=== PATIENT | male | born 1975 | race Hispanic/Latino ===

== ENCOUNTER → 2018-03-17 | Day surgery (SDC) | payer OTHER ==
[2018-03-10 10:59] LABS: BASOPHILS # (AUTO) 0.1 (0.0-0.1); EOSINOPHILS # (AUTO) 0.2 (0.0-0.4); EOSINOPHILS % 2.7 % (0.0-6.0); HEMATOCRIT 46.2 % (38.2-49.6); HEMOGLOBIN 16.5 g/dL (14.0-18.0); LYMPHOCYTES # (AUTO) 2.2 (1.0-3.2); LYMPHOCYTES % 31.2 % (18.0-39.1); MEAN CORPUSCULAR HEMOGLOBIN 31.1 pg (28-32); MEAN CORPUSCULAR HGB CONC 35.7 g/dL (31-35); MEAN CORPUSCULAR VOLUME 87.2 fL (81-99); MONOCYTES # (AUTO) 0.8 (0.2-0.8); MONOCYTES % 11.3 % (4.4-11.3); NEUTROPHILS # (AUTO) 3.7 (2.1-6.9); NEUTROPHILS % 53.4 % (38.7-80.0); PLATELET COUNT 209 x10e3/uL (140-360); RED CELL DISTRIBUTION WIDTH 12.5 % (11.7-14.4)
[2018-03-10 11:17] LABS: ANION GAP 13.8 mmol/L (8-16); BLOOD UREA NITROGEN 14 mg/dL (7-26); BUN/CREATININE RATIO 12 (6-25); CALCIUM 9.9 mg/dL (8.4-10.2); CARBON DIOXIDE 29 mmol/L (22-29); CHLORIDE 102 mmol/L (98-107); CREATININE, SERUM 1.15 mg/dL (0.72-1.25); EST GLOMERULAR FILTRATION RATE > 60 ML/MIN (60-); GLUCOSE 100 mg/dL (74-118); POTASSIUM 4.8 mmol/L (3.5-5.1); SODIUM 140 mmol/L (136-145)
[~2018-03-17] MED LIST: AMLODIPINE-BEN1 EAC3; ASPIRIN81 MG; BUPIVACAINE 0.25%/EPI 30ML SDV INJ ONE; CEFAZOLIN SOD 1 GM VIAL ONE; DEXAMETHASONE SOD PHOS INJ 4 MG/ML VIAL ONE; FENTANYL CITRATE/PF 100MCG/2 ML INJ ONE; GLYCOPYRROLATE INJ 1MG/ 5 ML SYR ONE; HYDROCODONE/APAP 7.5MG-325MG 1 EA TAB ONE; KETOROLAC TROMETHAMINE 30 MG/ML VIAL ONE; LABETALOL HCL 5 MG/ML 20ML VIAL ONE; LIDOCAINE HCL 2% LOCAL INJ 5 ML SDV VIAL INJ ONE; METOCLOPRAMIDE HCL 10 MG/2ML VIAL ONE; MIDAZOLAM HCL 2 MG/2 ML VIAL ONE; NEOSTIGMINE 5 MG/5ML SYR ONE; ONDANSETRON HCL INJ 2 MG/ML VIAL ONE; PROPOFOL IV EMULSION 10 MG/ML 20 ML VIAL ONE; ROCURONIUM BROMIDE 10 MG/ML 5ML VIAL ONE; SEVOFLURANE INHAL SOLN 250 ML PEN BTL ONE
--- NOTE | 2018-03-17 10:49 | Operative Report ---
DATE OF PROCEDURE: March 17, 2018 PREOPERATIVE DIAGNOSIS: Ventral hernia. POSTOPERATIVE DIAGNOSIS: Ventral and umbilical hernias. OPERATION PERFORMED: Repair of ventral and umbilical hernias with mesh and omentectomy. ANESTHESIA: General. COMPLICATIONS: None. ESTIMATED BLOOD LOSS: Minimal. DESCRIPTION OF PROCEDURE: With the patient lying in bed in the supine position under good general anesthesia, the abdomen was prepped with Betadine solution and draped in the usual manner. An upper midline incision was made. It was carried down through the subcutaneous tissue, and immediately a large hernia sac was encountered, which contained a lot of incarcerated omentum. Hernia sac was then dissected all the way around down to its neck with normal fascia all the way around. The hernia sac was then opened, and the omentum that was incarcerated was then ligated with Vicryl and divided. At this point, we were able to get access to the intra-abdominal cavity through the hernia sac. Examination revealed there were no other defects in the epigastric region, but there was also a defect in the umbilicus. The umbilicus was then dissected circumferentially and the umbilicus was from the underlying fashion. The hernia sac was similarly opened, and the contents reduced back to the intra-abdominal cavity. After this was done, a large Ventralex patch was then placed through the hernia sac into the intra-abdominal cavity and deployed without any problems. The umbilical defect was then closed with interrupted sutures of 0 Ethibond anchoring the mesh to cover both defects all the way around. The ventral hernia defect was then closed transversely incorporating the mesh along with the closure. This gave us a satisfactory closure without any tension. The whole area was thoroughly irrigated. Perfect hemostasis was ascertained. All layers were infiltrated on the way out with solution of 0.25% Marcaine. The umbilicus was then tacked back down to the midline with 3-0 Vicryl. Subcutaneous tissue was approximated with 2-0 Vicryl. The skin was closed with clips. A dressing was applied. The sponge, lap and needle count was correct. Patient tolerated the procedure well and returned to the recovery room in stable condition. Job#: [id number] [place]
== END | disposition home or self-care (01) ==
LOC: OR 05:32
PROVIDERS: ATTEND Surgery
DX: K43.6 Other and unspecified ventral hernia with obstruction, without gangrene (principal); K42.9 Umbilical hernia without obstruction or gangrene; I10 Essential (primary) hypertension; Z01.810 Encounter for preprocedural cardiovascular examination; Z01.812 Encounter for preprocedural laboratory examination; Z79.82 Long term (current) use of aspirin
CPT/HCPCS: 36415; 49561; 49568; 49585; 80048; 85025; 88305; 93005; C1781; J0690; J1100; J1885; J2001; J2250; J2405; J2765; J3490 ×2

== ENCOUNTER → 2018-06-16 | Outpatient (CLI) | payer OTHER ==
[~2018-06-16] MED LIST changes: -AMLODIPINE-BEN1 EAC3; +AMLODIPINE-BEN1 EAC3 PO; -ASPIRIN81 MG; +ASPIRIN81 MG PO; +ATORVASTATIN CA10 MG PO; -BUPIVACAINE 0.25%/EPI 30ML SDV INJ ONE; -CEFAZOLIN SOD 1 GM VIAL ONE; -DEXAMETHASONE SOD PHOS INJ 4 MG/ML VIAL ONE; -FENTANYL CITRATE/PF 100MCG/2 ML INJ ONE; -GLYCOPYRROLATE INJ 1MG/ 5 ML SYR ONE; -HYDROCODONE/APAP 7.5MG-325MG 1 EA TAB ONE; -KETOROLAC TROMETHAMINE 30 MG/ML VIAL ONE; -LABETALOL HCL 5 MG/ML 20ML VIAL ONE; -LIDOCAINE HCL 2% LOCAL INJ 5 ML SDV VIAL INJ ONE; -METOCLOPRAMIDE HCL 10 MG/2ML VIAL ONE; -MIDAZOLAM HCL 2 MG/2 ML VIAL ONE; -NEOSTIGMINE 5 MG/5ML SYR ONE; -ONDANSETRON HCL INJ 2 MG/ML VIAL ONE; -PROPOFOL IV EMULSION 10 MG/ML 20 ML VIAL ONE; +REGADENOSON 0.4 MG/5 ML SYR IV ONE; -ROCURONIUM BROMIDE 10 MG/ML 5ML VIAL ONE; -SEVOFLURANE INHAL SOLN 250 ML PEN BTL ONE
--- NOTE | 2018-06-16 19:03 | Cardiology Report ---
DATE OF STUDY: June 16, 2018 STRESS TEST INTERPRETING AND SUPERVISING PHYSICIAN: Dr. Manuel Pastor, interventional cardiology. PROCEDURE INDICATION: Chest pain, abnormal EKG. INTERPRETATION: At rest, heart rate was 71, blood pressure 137/91. Resting EKG reveals normal sinus rhythm with nonspecific repolarization abnormalities. After Lexiscan was administered, heart rate estefanía to 90 beats per minute and blood pressure increased to 145/84. There were no significant ST changes or arrhythmias throughout stress or recovery. Myocardial perfusion reveals small-sized moderate severity basal to mid inferior stress-induced perfusion defect. Gated images demonstrate mild global impairment of left ventricular systolic function with left ventricular ejection fraction of 49%. CONCLUSION 1. Normal hemodynamic response to Lexiscan stress. 2. Normal electrocardiographic response to Lexiscan stress. 3. Abnormal myocardial perfusion with small-sized moderate severity inferior ischemia. 4. Mild global impairment and left ventricular systolic function with LVEF of 49%. Job#: [id number] MAYRA
== END ==
LOC: NM 07:19
PROVIDERS: ATTEND Internal Medicine Cardiovascular Disease
DX: R07.9 Chest pain, unspecified (principal); R06.02 Shortness of breath
CPT/HCPCS: 78452; 93017; A9502

== ENCOUNTER → 2018-07-12 | Day surgery (SDC) | payer OTHER ==
[2018-07-11 15:12] LABS: BASOPHILS # (AUTO) 0.1 (0.0-0.1); BASOPHILS % 0.9 % (0.0-1.0); EOSINOPHILS # (AUTO) 0.2 (0.0-0.4); EOSINOPHILS % 1.9 % (0.0-6.0); HEMATOCRIT 45.6 % (38.2-49.6); HEMOGLOBIN 16.2 g/dL (14.0-18.0); LYMPHOCYTES # (AUTO) 2.3 (1.0-3.2); LYMPHOCYTES % 28.9 % (18.0-39.1); MEAN CORPUSCULAR HEMOGLOBIN 31.3 pg (28-32); MEAN CORPUSCULAR HGB CONC 35.5 g/dL (31-35); MONOCYTES % 12.3 % (4.4-11.3); NEUTROPHILS # (AUTO) 4.4 (2.1-6.9); NEUTROPHILS % 55.7 % (38.7-80.0); PLATELET COUNT 209 x10e3/uL (140-360); RED BLOOD COUNT 5.18 x10e6/uL (4.3-5.7); RED CELL DISTRIBUTION WIDTH 12.4 % (11.7-14.4)
[2018-07-11 15:22] LABS: INR 0.94; PROTHROMBIN TIME 13.4 seconds (11.9-14.5)
[2018-07-11 15:23] LABS: PARTIAL THROMBOPLASTIN TIME 25.2 seconds (23.8-35.5)
[2018-07-11 15:30] LABS: ALANINE AMINOTRANSFERASE 33 IU/L (0-55); ALBUMIN 4.5 g/dL (3.5-5.0); ALBUMIN/GLOBULIN RATIO 1.6 (0.8-2.0); ALKALINE PHOSPHATASE 57 IU/L (40-150); BLOOD UREA NITROGEN 13 mg/dL (7-26); BUN/CREATININE RATIO 12 (6-25); CALCIUM 9.5 mg/dL (8.4-10.2); CARBON DIOXIDE 27 mmol/L (22-29); CHLORIDE 101 mmol/L (98-107); CHOL/HDL RATIO 4.4 (3.9-4.7); CHOLESTEROL 170 MD/DL (0-199); EST GLOMERULAR FILTRATION RATE > 60 ML/MIN (60-); GLUCOSE 88 mg/dL (74-118); HDL CHOLESTEROL 39 MG/DL (40-60); LDL CHOLESTEROL 71 MG/DL (60-130); SODIUM 138 mmol/L (136-145); TRIGLYCERIDES 298 MG/DL (0-149)
[2018-07-12] VITALS (8 sets, daily range): BP systolic 88–163; BP diastolic 55–82
[~2018-07-12] VITALS: Ht 177.8 cm; Wt 131.5 kg
[~2018-07-12] MED LIST changes: +ASPIRIN 325 MG TAB ONE; +FENTANYL CITRATE/PF 100MCG/2 ML INJ ONE; +HEPARIN SOD (PORCINE) 1000 UNIT/ML 30ML ONE; +HEPARIN SOD/SOD CHLORIDE 2,000 ML ONE; +IOPAMIDOL 370 MG/ML 200 ML INFUS..BTL INJ ONE; +LIDOCAINE HCL 2% LOCAL 20 ML VIAL ONE; +MIDAZOLAM HCL 2 MG/2 ML VIAL ONE; +NITROGLYCERIN 400 MCG/SPRAY 4.9 GM BTL ONE; -REGADENOSON 0.4 MG/5 ML SYR IV ONE; +SODIUM CHLORIDE 0.9% 1000ML 1,000 ML ONE; +VERAPAMIL HCL 2.5 MG/ML 2 ML VIAL ONE
--- OUTSIDE RECORDS SUMMARY | 2018-07-12 08:51 | XMS REPORT ---
Author Author [facility] Address Unknown Phone Unavailable Care Team Providers Care Department Mgr Name Role Phone Anisha BILLINGSLEY Unavailable Unavailable Problems This patient has no known problems. Allergies, Adverse Reactions, Alerts This patient has no known allergies or adverse reactions. Medications This patient has no known medications. Results Test Description Test Time Test Comments Text Results Atomic Results Result Comments Stress Test - Treadmill ONLY 2018-06-16 17:51:00 [place] [id number] Patient Name : JEAN FERNÁNDEZ MR #: [id number] : 1975 Age/Sex: 42/M Adm Physician : MANUEL BILLINGSLEY MD Admit Date : Location : [place] Room/Bed : REPORT: Cardiology Report DATE OF STUDY: June 16, 2018 STRESS TEST INTERPRETING AND SUPERVISING PHYSICIAN: Dr. Manuel Pastor, interventional cardiology. PROCEDURE INDICATION: Chest pain, abnormal EKG. INTERPRETATION: At rest, heart rate was 71, blood pressure 137/91. Resting EKG reveals normal sinus rhythm with nonspecific repolarization abnormalities. After Lexiscan was administered, heart rate estefanía to 90 beats per minute and blood pressure increased to 145/84. There were no significant ST changes or arrhythmias throughout stress or recovery. Myocardial perfusion reveals small-sized moderate severity basal to mid inferior stress-induced perfusion defect. Gated images demonstrate mild global impairment of left ventricular systolic function with left ventricular ejection fraction of 49%. CONCLUSION 1. Normal hemodynamic response to Lexiscan stress. 2. Normal electrocardiographic response to Lexiscan stress. 3. Abnormal myocardial perfusion with small-sized moderate severity inferior ischemia. 4. Mild global impairment and left ventricular systolic function with LVEF of 49%. Job#: [id number] RTY Signature Date Dictated By: MANUEL LOMBARDO MD Transcribed By: EDS on 06/16/18 <Electronically signed by MANUEL LOMBARDO MD><<Signature on File>>06/17/18 4725 COPY TO:
--- NOTE | 2018-07-12 11:38 | NUR ---
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 [facility] diagnostic no fix.Rt TR band site intact. Positive radial pulse no oozing noted at site. Back to baseline orientation. Resp shallow and regular Sinus bradycardia w/o ectopics. at bedside Yin [phone]. Has discharge plans and f/o care. Abd soft and nontender denies necessity to defecate or urinate. PP x4 Pt /Dp.Denies CP or SOB Ordered tray.
--- NOTE | 2018-07-12 12:25 | NUR ---
1225 TR Band titration with 10cc balloon (-4cc)by Carla SUMNER. 82 Hr b/p 88/67, Resp 16 no c/o no bleeding, Radial pulse adequate 1250 Tr Band titration continued (-3cc )no bleeding or hematoma ,radial pulse adequate.112/75 84 16 1305 TR band titration completed with (-3cc) no bleeding or hematoma,radial pulse adequate. Coban dressing with sterile 2x2 and Tegaderm dressing.109/70 70 16 resp no distress Sinus Rhythm.
--- NOTE | 2018-07-12 13:30 | NUR ---
1330n Tr band titration completed no signs hematoma, swelling or bleeding sterile 2x2 with te[address]erm in place with coban. Left iv removed no s/s infiltration. 2x2 with coban dressing.Discharged per w/c with staff escort to car. 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 Denies c/o aware to f/o Md office in 4wks Dr Pastor office notified stasis to TR band and ok for DC now.
--- NOTE | 2018-09-11 11:41 | Operative Report ---
DATE OF PROCEDURE: July 12, 2018 CARDIAC CATHETERIZATION REPORT PROCEDURE INDICATION: Chest pain concerning for unstable angina. PROCEDURES PERFORMED 1. Left heart catheterization and selective coronary angiogram. 1. Right radial transradial band hemostasis. PROCEDURE COMPLICATIONS: None. ESTIMATED BLOOD LOSS: Less than 5 mL. PROCEDURE SUMMARY: After consent was obtained, patient was prepped and draped in a sterile fashion, and the right radial site was locally infiltrated with 2% lidocaine. Access was obtained with a 5-Taiwanese outer-diameter Slender sheath, and 2.5 mg of verapamil, 300 mcg of nitroglycerin and 5000 units of heparin were administered via the sheath. A Kylah catheter was used as a universal catheter for engagement of the left main and then the right coronary artery as well as to cross the aortic valve for hemodynamic measurements. No left ventriculogram was performed. The following findings were noted: 1. LV pressure was 118/10 with end-diastolic pressure of 18. Aortic pressure was 128/68. No left ventriculogram was performed. 2. Left main is large in caliber with luminal irregularities, giving an LAD, a ramus intermedius and a circumflex. 3. The LAD is large caliber and luminal irregularities throughout, giving diagonals and septal perforators as it courses to the apex. 4. The ramus intermedius is medium in caliber with luminal irregularities. 5. The circumflex has luminal irregularities. Two obtuse marginals and two left posterolateral branches arise from this vessel. 6. The right coronary artery is dominant with luminal irregularities. It gives two RV marginals and a terminal RPDA and RPLV. CONCLUSION: No evidence of obstructive coronary artery disease. RECOMMENDATIONS 1. Wean TR band. 2. Outpatient followup in two weeks. Job#: [id number] EV
== END | disposition home or self-care (01) ==
LOC: CATH LAB 08:49
PROVIDERS: ATTEND Internal Medicine Cardiovascular Disease
DX: R07.9 Chest pain, unspecified (principal); R06.02 Shortness of breath; I10 Essential (primary) hypertension; E78.5 Hyperlipidemia, unspecified; E66.01 Morbid (severe) obesity due to excess calories; Z83.3 Family history of diabetes mellitus; Z82.49 Family history of ischemic heart disease and other diseases of the circulatory system; Z01.810 Encounter for preprocedural cardiovascular examination; Z01.812 Encounter for preprocedural laboratory examination; Z68.41 Body mass index [BMI] 40.0-44.9, adult; Z79.82 Long term (current) use of aspirin
CPT/HCPCS: 36415; 80053; 80061; 85025; 85610; 85730; 93005; 93458; J1644; J2001; J2250; J7030; Q9967; C1887

== ENCOUNTER → 2019-07-05 | Day surgery (SDC) | payer OTHER ==
[~2019-07-05] MED LIST changes: -ASPIRIN 325 MG TAB ONE; -FENTANYL CITRATE/PF 100MCG/2 ML INJ ONE; -HEPARIN SOD (PORCINE) 1000 UNIT/ML 30ML ONE; -HEPARIN SOD/SOD CHLORIDE 2,000 ML ONE; -IOPAMIDOL 370 MG/ML 200 ML INFUS..BTL INJ ONE; +LANSOPRAZOLE15 MG PO; -LIDOCAINE HCL 2% LOCAL 20 ML VIAL ONE; -NITROGLYCERIN 400 MCG/SPRAY 4.9 GM BTL ONE; +PROPOFOL IV EMULSION 10 MG/ML 50 ML VIAL ONE; -SODIUM CHLORIDE 0.9% 1000ML 1,000 ML ONE; -VERAPAMIL HCL 2.5 MG/ML 2 ML VIAL ONE
[2019-07-05 09:18] VITALS: BP 113/61
== END | disposition home or self-care (01) ==
LOC: OR 06:22
PROVIDERS: ATTEND Internal Medicine Gastroenterology
DX: K29.50 Unspecified chronic gastritis without bleeding (principal); K20.9 Esophagitis, unspecified; K21.9 Gastro-esophageal reflux disease without esophagitis; Z71.3 Dietary counseling and surveillance; I10 Essential (primary) hypertension; G47.33 Obstructive sleep apnea (adult) (pediatric); E66.01 Morbid (severe) obesity due to excess calories; Z01.810 Encounter for preprocedural cardiovascular examination; Z68.41 Body mass index [BMI] 40.0-44.9, adult
CPT/HCPCS: 43239; 93005; J2250; J2704